=== PATIENT | female | born 1965 | race Caucasian/White ===

== ENCOUNTER 2017-05-01 11:44 | Emergency (ER) | payer MEDICARE, OTHER ==
[2017-05-22] MEDS ORDERED: ASPIRIN 325MG325 MG PO (02:05)
[2017-05-22] MEDS ORDERED: SYNTHROID75 MCG PO (02:06)
[2017-05-22] MEDS ORDERED: GLUCOTROL 10 MG10 MG PO (02:06)
[2017-05-22] MEDS ORDERED: COZAAR100 MG PO (02:06)
[2017-05-22] MEDS ORDERED: GLUCOPHAGE1000 MG PO (02:07)
[2017-05-22] MEDS ORDERED: KLOR-CON M1010 MEQ PO (02:08)
[2017-05-22] MEDS ORDERED: CRESTOR5 MG PO (02:09)
[2017-05-23] MEDS ORDERED: COLACE 100MG C100 MG PO (19:49)
[2017-05-23] MEDS ORDERED: PERCOCET 5-3251 EACH PO (19:52)
[2017-05-23] MEDS ORDERED: METOPROLOL TART50 MG PO (19:53)
== END 2017-05-01 15:00 | disposition home or self-care (01) ==
LOC: ER1 11:44
DX: N39.0 Urinary tract infection, site not specified (principal); Z86.79 Personal history of other diseases of the circulatory system; Z88.1 Allergy status to other antibiotic agents
CPT/HCPCS: 81001; 87086; 96372; 99283

== ENCOUNTER 2022-06-30 14:29 | Emergency (ER) | payer MEDICARE, OTHER ==
[~2022-06-30 14:29] MED LIST: ASPIRIN 325MG325 MG PO; COLACE 100MG C100 MG PO; COZAAR100 MG PO; CRESTOR10 MG PO; CRESTOR5 MG PO; GLUCOPHAGE1000 MG PO; GLUCOTROL 10 MG10 MG PO; HYDRALAZINE HC100 MG PO; K-DUR TAB 10 M10 MEQ PO; KLOR-CON M1010 MEQ PO; LASIX20 MG PO; METOPROLOL TART50 MG PO; NORVASC 5 MG TAB5 MG PO; NOVOLIN 70100 UNIT/1 SQ; NOVOLOG MI100 UNIT/1 SQ; OMEPRAZOLE20 MG PO; PERCOCET 5-3251 EACH PO; PLAVIX 75 MG TA75 MG PO; PROCARDIA XL30 MG PO; PROVENTIL HFA6.7 GM INH; SYNTHROID75 MCG PO; TYLENOL 500 MG500 MG PO; ZYRTEC10 M2 PO
[2022-06-30 15:10] LABS: HEMOGLOBIN 14.7 gm/dl (12.3-15.3); RED BLOOD COUNT 5.27 M/UL (4.00-5.10); WHITE BLOOD COUNT 10.3 K/UL (4.5-11.0)
[2022-06-30] MEDS ORDERED: ATROVENT HFA12.9 GM INH (20:15)
[2022-06-30] MEDS ORDERED: FLONASE 0.05% N16 GM (20:15)
[2022-06-30] MEDS ORDERED: DELSYM30 MG/5 ML PO (20:15)
== END 2022-06-30 20:30 | disposition home or self-care (01) ==
LOC: ER1 14:29
PROVIDERS: Emergency Medicine
DX: R05.9 Cough, unspecified (principal); I13.0 Hypertensive heart and chronic kidney disease with heart failure and stage 1 through stage 4 chronic kidney disease, or unspecified chronic kidney disease; E11.22 Type 2 diabetes mellitus with diabetic chronic kidney disease; I50.9 Heart failure, unspecified; N18.9 Chronic kidney disease, unspecified; Z88.1 Allergy status to other antibiotic agents; Z20.822 Contact with and (suspected) exposure to COVID-19
CPT/HCPCS: 0240U; 71045; 80053; 82550; 82553; 83880; 84484; 85025; 93005; 99284